=== PATIENT | female | born 1955 | race Caucasian/White ===

== ENCOUNTER 2016-04-10 21:52 | Emergency (ER) | payer OTHER ==
[~2016-04-10] VITALS: Ht 160 cm; Wt 67.3 kg
[~2016-04-10 21:52] MED LIST: ADULT LOW DOSE81 M1 PO; AMLODIPINE BES2.5 MG PO; Aspirin E.C. PO; Buspar PO; CIPRO250 MG PO; CLINDAMYCIN HC300 MG PO; CYMBALTA60 MG PO; DITROPAN5 MG PO; GABAPENTIN100 MG PO; LYRICA75 MG PO; NAPROSYN500 MG PO; Norvasc PO; PERCOCET 5/31 TABLET PO; PRAVACHOL10 MG PO; PRILOSEC40 MG PO; PROBIOTIC250 MG PO; Pravachol PO; RANITIDINE HCL150 MG; REMERON45 MG PO; SEROQUEL12.5 MG PO; TRAMADOL HCL50 MG PO; TYLENOL PM EX-1 EAC1 PO; VALIUM2 MG PO; VOLTAREN50 MG PO; Wellbutrin XL PO
[2016-04-10] MEDS ORDERED: MIRAPEX0.125 MG PO (23:05)
[2016-04-10 23:15] VITALS: BP 108/64
[2016-04-10 23:15] LABS: MCH 29.8 PG (29.0-34.0); MCHC 32.8 G/DL (30.0-36.0); MCV 91.1 FL (83-99); MEAN PLAT.VOLUME 9.2 uM^3 (9.5-12.4); PLATELET COUNT 307 K/uL (156-360); RBC DIS.WIDTH-CV 13.8 % (11.8-14.6); RBC DIS.WIDTH-SD 45.1 % (39-53); RED BLOOD COUNT 4.39 M/uL (3.80-5.20)
[2016-04-10 23:23] LABS: CHLORIDE 104 mEq/L (99-109); POTASSIUM 3.9 mEq/L (3.7-5.4); SODIUM 144 mEq/L (136-147)
[2016-04-10 23:25] LABS: GLUCOSE 94 mg/dL (70-99)
[2016-04-10 23:26] LABS: ANION GAP 10 MEQ/L (2-14)
[2016-04-10 23:29] LABS: GFR ESTIMATE (CALCULATED) 35 mL/min/; UREA NITROGEN (BUN) 9 mg/dL (9-23)
== END 2016-04-10 23:39 | disposition left against medical advice (07) ==
LOC: EME 21:52 → RME 21:52
PROVIDERS: Physician Assistant
DX: G25.81 Restless legs syndrome (principal); N17.9 Acute kidney failure, unspecified; E78.5 Hyperlipidemia, unspecified; I25.2 Old myocardial infarction; F17.200 Nicotine dependence, unspecified, uncomplicated
CPT/HCPCS: 80048; 85027; 99281; 99284

== ENCOUNTER 2016-10-27 20:08 | Emergency (ER) | payer OTHER ==
[~2016-10-27] VITALS: Ht 160 cm; Wt 64.6 kg
[~2016-10-27 20:08] MED LIST changes: +MIRAPEX0.125 MG PO
[2016-10-27 20:11] VITALS: BP 112/78
== END 2016-10-27 22:04 | disposition left against medical advice (07) ==
LOC: EME 20:08
DX: M54.9 Dorsalgia, unspecified (principal); Z53.21 Procedure and treatment not carried out due to patient leaving prior to being seen by health care provider

== ENCOUNTER 2017-01-30 11:52 | Day surgery (SDC) | payer OTHER ==
[~2017-01-30] VITALS: Ht 160 cm; Wt 67.1 kg
[~2017-01-30 11:52] MED LIST changes: +WELLBUTRIN100 MG PO
[2017-02-01] MEDS ORDERED: FLEXERIL10 MG PO (09:07)
[2017-02-01] MEDS ORDERED: RELAFEN750 MG PO (09:08)
[2017-02-01] MEDS ORDERED: CYMBALTA60 MG PO (09:08)
[2017-02-01] MEDS ORDERED: ENDOCET 5-3251 EACH PO (09:10)
[2017-02-01] MEDS ORDERED: MIRAPEX0.125 MG PO (09:11)
== END 2017-01-30 14:04 | disposition home or self-care (01) ==
LOC: PAIN 11:52 → SDC 12:30 → PAIN 14:04
PROC: 015B3ZZ Destruction of Lumbar Nerve, Percutaneous Approach (ICD-10-PCS; principal; 2017-01-30)
DX: M47.816 Spondylosis without myelopathy or radiculopathy, lumbar region (principal); I95.89 Other hypotension; F41.9 Anxiety disorder, unspecified; G47.00 Insomnia, unspecified; Z79.891 Long term (current) use of opiate analgesic; F17.200 Nicotine dependence, unspecified, uncomplicated; Z88.1 Allergy status to other antibiotic agents
CPT/HCPCS: 93005; J1030; J2250; J3010; S0020

== ENCOUNTER 2017-02-06 11:56 | Day surgery (SDC) | payer OTHER ==
[~2017-02-06] VITALS: Ht 160 cm; Wt 65.3 kg
[~2017-02-06 11:56] MED LIST changes: +ENDOCET 5-3251 EACH PO; +FLEXERIL10 MG PO; +RELAFEN750 MG PO
== END 2017-02-06 13:50 | disposition home or self-care (01) ==
LOC: PAIN 11:56 → SDC 12:30 → PAIN 13:50
DX: M47.16 Other spondylosis with myelopathy, lumbar region (principal); M51.06 Intervertebral disc disorders with myelopathy, lumbar region; M54.5 Low back pain; G89.29 Other chronic pain; M43.16 Spondylolisthesis, lumbar region; M48.061 Spinal stenosis, lumbar region without neurogenic claudication; M79.1 Myalgia; M47.22 Other spondylosis with radiculopathy, cervical region; F41.8 Other specified anxiety disorders; K21.9 Gastro-esophageal reflux disease without esophagitis; I25.2 Old myocardial infarction; Z79.891 Long term (current) use of opiate analgesic; Z88.1 Allergy status to other antibiotic agents; F17.200 Nicotine dependence, unspecified, uncomplicated
CPT/HCPCS: J1030; J2250; J3010; S0020

== ENCOUNTER 2017-05-19 19:54 | Emergency (ER) | payer OTHER ==
[~2017-05-19] VITALS: Ht 160 cm; Wt 72.7 kg
[2017-05-19 21:15] LABS: HEMATOCRIT 39.6 % (36.0-46.0); HEMOGLOBIN 12.9 G/DL (11.9-15.5); MCH 29.9 PG (29.0-34.0); MCHC 32.6 G/DL (30.0-36.0); MCV 91.7 FL (83-99); PLATELET COUNT 285 K/uL (156-360); RBC DIS.WIDTH-CV 13.4 % (11.8-14.6); RBC DIS.WIDTH-SD 45.5 % (39-53); RED BLOOD COUNT 4.32 M/uL (3.80-5.20); WHITE BLOOD COUNT 5.9 K/uL (4.1-10.2)
[2017-05-19 21:26] LABS: CHLORIDE 108 mEq/L (99-109); POTASSIUM 4.1 mEq/L (3.7-5.4); SODIUM 143 mEq/L (136-147)
[2017-05-19 21:27] LABS: GLUCOSE 80 mg/dL (70-99)
[2017-05-19 21:32] LABS: UREA NITROGEN (BUN) 12 mg/dL (9-23)
[2017-05-19] MEDS ORDERED: FLONASE16 G1 BOTH NARES (21:36)
[2017-05-19] MEDS ORDERED: ANTIVERT25 MG PO (21:36)
[2017-05-19 21:46] LABS: CREATININE 1.1 mg/dL (0.6-1.3); GFR ESTIMATE (CALCULATED) 54 mL/min/
[2017-05-19 21:56] LABS: TROP-I INTERPRETATION NEGATIVE; TROPONIN-I < 0.01 ng/mL (0.0-0.30)
[2017-05-19 22:05] VITALS: BP 130/75
== END 2017-05-19 22:06 | disposition home or self-care (01) ==
LOC: EME → EDBD 19:54 → EME 19:54
PROVIDERS: Nurse Practitioner Family
DX: R42 Dizziness and giddiness (principal); F17.200 Nicotine dependence, unspecified, uncomplicated; R29.6 Repeated falls; E78.5 Hyperlipidemia, unspecified; I25.2 Old myocardial infarction; K21.9 Gastro-esophageal reflux disease without esophagitis; Z88.2 Allergy status to sulfonamides
CPT/HCPCS: 70450; 71046; 80048; 81003; 84484; 85027; 93005; 99281; 99284

== ENCOUNTER 2017-07-31 12:10 | Day surgery (SDC) | payer OTHER ==
[~2017-07-31] VITALS: Ht 162.6 cm; Wt 65.8 kg
[~2017-07-31 12:10] MED LIST changes: +ACID REDUCER150 MG PO; +ANTIVERT25 MG PO; -FLEXERIL10 MG PO; +FLEXERIL5 MG PO; +FLONASE16 G1 BOTH NARES; +MOTION SICKNESS25 M1 PO; +WELLBUTRIN SR100 MG PO; -WELLBUTRIN100 MG PO
== END 2017-07-31 14:45 | disposition home or self-care (01) ==
LOC: PAIN 12:10 → SDC 12:45 → PAIN 14:45
DX: M50.13 Cervical disc disorder with radiculopathy, cervicothoracic region (principal); M47.12 Other spondylosis with myelopathy, cervical region; M79.7 Fibromyalgia; F41.8 Other specified anxiety disorders; J44.9 Chronic obstructive pulmonary disease, unspecified; K21.9 Gastro-esophageal reflux disease without esophagitis; R94.31 Abnormal electrocardiogram [ECG] [EKG]; I25.2 Old myocardial infarction; F17.200 Nicotine dependence, unspecified, uncomplicated; Z95.5 Presence of coronary angioplasty implant and graft; Z88.2 Allergy status to sulfonamides
CPT/HCPCS: J1100; J2250